=== PATIENT | male | born 1970 | race Caucasian/White ===

== ENCOUNTER 2018-04-19 09:00 | Inpatient (IN) | payer MEDICARE, MEDICAID ==
[~2018-04-19] VITALS: Ht 182.9 cm; Wt 148.9 kg
[2018-04-19] MEDS ORDERED: acetaminophen 325mg tablet PO PRN ×2 (11:30)
[2018-04-19] MEDS ORDERED: magnesium hydroxide 30ml (MOM) UD suspension PO PRN (11:30)
[2018-04-19] MEDS ORDERED: mag hydrox/Alum hydrox/simeth 30ml oral suspension PO PRN (11:30)
[2018-04-19 11:38] VITALS: BP 146/103
[2018-04-19] MEDS ORDERED: hydrOXYzine 25 MG tablet PO PRN (12:00)
[2018-04-19] MEDS ORDERED: TRAZ-219 PO (12:08)
[2018-04-19] MEDS ORDERED: METF-436 PO (12:08)
[2018-04-19] MEDS ORDERED: ARIP20TA4 PO (12:08)
[2018-04-19] MEDS ORDERED: TACR100O2 TOP (12:08)
[2018-04-19] MEDS ORDERED: ARIP400S3 IM (12:08)
[2018-04-19] MEDS ORDERED: INSU100V9 SQ (12:08)
[2018-04-19] MEDS ORDERED: DULA0.75 SQ (12:08)
[2018-04-19] MEDS ORDERED: PIOG45TA65 PO (12:08)
[2018-04-19] MEDS ORDERED: HYDR-3686 PO (12:08)
[2018-04-19 12:15] LABS: CHOL/HDL RATIO 6.5 (0.00-4.99); CHOLESTEROL 137 MG/DL (0-200); HDL CHOLESTEROL 21 MG/DL (35-60); LDL CHOLESTEROL 80 MG/DL (50-100); TRIGLYCERIDES 307 MG/DL (20-135)
[2018-04-19] MEDS ORDERED: DULAGLUTIDE SQ SCH (12:15)
[2018-04-19] MEDS: DULAGLUTIDE SQ SCH (19:00)
[2018-04-19 19:24] VITALS: BP 137/75
[2018-04-19] MEDS: metFORMIN 500mg tablet PO SCH (20:00)
[2018-04-19] MEDS: TACROLIMUS TP SCH (20:00)
[2018-04-19] MEDS: insulin glargine (Lantus) pen - multi-dose SQ SCH (21:46)
[2018-04-19] MEDS: traZODone 50mg tablet PO SCH (21:49)
[2018-04-20] MEDS: aripiprazole 5mg tablet PO SCH (07:53)
[2018-04-20] MEDS: pioglitazone 45mg tablet PO SCH (07:55)
[2018-04-20 08:00] VITALS: BP 129/91
[2018-04-20] MEDS: TACROLIMUS TP SCH ×2 (08:00→20:00)
[2018-04-20] MEDS: metFORMIN 500mg tablet PO SCH ×2 (08:32→21:04)
[2018-04-20] MEDS ORDERED: DULAGLUTIDE SQ ONE (09:10)
[2018-04-20] MEDS ORDERED: buPROPion SR 100mg tab PO ONE (11:05)
[2018-04-20 20:00] VITALS: BP 141/93
[2018-04-20] MEDS: traZODone 50mg tablet PO SCH (21:04)
[2018-04-20] MEDS: insulin glargine (Lantus) pen - multi-dose SQ SCH (21:09)
[2018-04-21 08:00] VITALS: BP 131/88
[2018-04-21] MEDS ORDERED: buPROPion 100mg tablet PO SCH (08:00)
[2018-04-21] MEDS ORDERED: buPROPion SR 100mg tab PO SCH (08:00)
[2018-04-21] MEDS: pioglitazone 45mg tablet PO SCH (08:09)
[2018-04-21] MEDS: aripiprazole 5mg tablet PO SCH (08:09)
[2018-04-21] MEDS: metFORMIN 500mg tablet PO SCH ×2 (08:09→20:10)
[2018-04-21] MEDS: TACROLIMUS TP SCH ×2 (08:11→20:00)
[2018-04-21 19:39] VITALS: BP 136/90
[2018-04-21] MEDS: traZODone 50mg tablet PO SCH (20:10)
[2018-04-21] MEDS: insulin glargine (Lantus) pen - multi-dose SQ SCH (20:13)
[2018-04-22] MEDS: pioglitazone 45mg tablet PO SCH (07:57)
[2018-04-22] MEDS: aripiprazole 5mg tablet PO SCH (07:57)
[2018-04-22] MEDS: buPROPion SR 150mg tablet PO SCH (07:58)
[2018-04-22] MEDS: metFORMIN 500mg tablet PO SCH ×2 (07:58→21:11)
[2018-04-22 08:00] VITALS: BP 129/80
[2018-04-22] MEDS ORDERED: duloxetine 30mg CAPSULE.DR PO SCH (08:00)
[2018-04-22] MEDS: TACROLIMUS TP SCH ×2 (08:03→20:00)
[2018-04-22 19:08] VITALS: BP 146/98
[2018-04-22 19:30] VITALS: BP 140/80
[2018-04-22] MEDS: insulin glargine (Lantus) pen - multi-dose SQ SCH (21:10)
[2018-04-22] MEDS: traZODone 50mg tablet PO SCH (21:11)
[2018-04-23] MEDS: pioglitazone 45mg tablet PO SCH (07:33)
[2018-04-23] MEDS: metFORMIN 500mg tablet PO SCH ×2 (07:34→20:52)
[2018-04-23] MEDS: duloxetine 30mg CAPSULE.DR PO SCH (07:34)
[2018-04-23] MEDS: buPROPion SR 150mg tablet PO SCH (07:35)
[2018-04-23] MEDS: aripiprazole 5mg tablet PO SCH (07:35)
[2018-04-23] MEDS: TACROLIMUS TP SCH ×2 (07:36→20:00)
[2018-04-23 08:00] VITALS: BP 126/82
[2018-04-23 18:57] VITALS: BP 131/84
[2018-04-23 20:00] VITALS: BP 131/84
[2018-04-23] MEDS: traZODone 50mg tablet PO SCH (20:52)
[2018-04-23] MEDS: insulin glargine (Lantus) pen - multi-dose SQ SCH (20:57)
[2018-04-24] MEDS: TACROLIMUS TP SCH ×2 (07:29→20:22)
[2018-04-24] MEDS: aripiprazole 5mg tablet PO SCH (07:30)
[2018-04-24] MEDS: buPROPion SR 150mg tablet PO SCH (07:30)
[2018-04-24] MEDS: pioglitazone 45mg tablet PO SCH (07:30)
[2018-04-24] MEDS: metFORMIN 500mg tablet PO SCH ×2 (07:30→20:22)
[2018-04-24] MEDS: duloxetine 30mg CAPSULE.DR PO SCH (07:31)
[2018-04-24 08:57] VITALS: BP 127/78
[2018-04-24 18:57] VITALS: BP 137/84
[2018-04-24 20:11] VITALS: BP 137/84
[2018-04-24] MEDS: insulin glargine (Lantus) pen - multi-dose SQ SCH (20:21)
[2018-04-24] MEDS: traZODone 50mg tablet PO SCH (20:22)
[2018-04-25 07:59] VITALS: BP 132/86
[2018-04-25] MEDS: pioglitazone 45mg tablet PO SCH (08:12)
[2018-04-25] MEDS: buPROPion SR 150mg tablet PO SCH (08:12)
[2018-04-25] MEDS: aripiprazole 5mg tablet PO SCH (08:12)
[2018-04-25] MEDS: metFORMIN 500mg tablet PO SCH ×2 (08:12→20:35)
[2018-04-25] MEDS: duloxetine 30mg CAPSULE.DR PO SCH (08:16)
[2018-04-25] MEDS: TACROLIMUS TP SCH ×2 (08:36→20:36)
[2018-04-25 19:00] VITALS: BP 124/76
[2018-04-25] MEDS: traZODone 50mg tablet PO SCH (20:35)
[2018-04-25] MEDS: insulin glargine (Lantus) pen - multi-dose SQ SCH (20:42)
[2018-04-26 08:00] VITALS: BP 117/86
[2018-04-26] MEDS: buPROPion SR 150mg tablet PO SCH (08:11)
[2018-04-26] MEDS: metFORMIN 500mg tablet PO SCH ×2 (08:11→21:00)
[2018-04-26] MEDS: pioglitazone 45mg tablet PO SCH (08:11)
[2018-04-26] MEDS: duloxetine 30mg CAPSULE.DR PO SCH (08:12)
[2018-04-26] MEDS: aripiprazole 5mg tablet PO SCH (08:12)
[2018-04-26] MEDS: TACROLIMUS TP SCH ×2 (08:12→20:00)
[2018-04-26] MEDS: DULAGLUTIDE SQ SCH (19:00)
[2018-04-26 19:55] VITALS: BP 123/81
[2018-04-26] MEDS: insulin glargine (Lantus) pen - multi-dose SQ SCH (20:58)
[2018-04-26] MEDS: traZODone 50mg tablet PO SCH (21:00)
[2018-04-27] MEDS: buPROPion SR 150mg tablet PO SCH (08:00)
[2018-04-27] MEDS: pioglitazone 45mg tablet PO SCH (08:00)
[2018-04-27] MEDS: duloxetine 30mg CAPSULE.DR PO SCH (08:01)
[2018-04-27] MEDS: DULAGLUTIDE SQ SCH (08:01)
[2018-04-27] MEDS: aripiprazole 5mg tablet PO SCH (08:01)
[2018-04-27] MEDS: metFORMIN 500mg tablet PO SCH ×2 (08:01→20:35)
[2018-04-27] MEDS: TACROLIMUS TP SCH ×2 (08:01→20:35)
[2018-04-27 08:06] VITALS: BP 120/79
[2018-04-27 19:38] VITALS: BP 115/74
[2018-04-27] MEDS: insulin glargine (Lantus) pen - multi-dose SQ SCH (20:34)
[2018-04-27] MEDS: traZODone 50mg tablet PO SCH (20:35)
[2018-04-28] MEDS: metFORMIN 500mg tablet PO SCH (07:59)
[2018-04-28 08:00] VITALS: BP 118/79
[2018-04-28] MEDS: buPROPion SR 150mg tablet PO SCH (08:00)
[2018-04-28] MEDS: TACROLIMUS TP SCH (08:00)
[2018-04-28] MEDS: pioglitazone 45mg tablet PO SCH (08:00)
[2018-04-28] MEDS: aripiprazole 5mg tablet PO SCH (08:00)
[2018-04-28] MEDS: duloxetine 30mg CAPSULE.DR PO SCH (08:00)
[2018-04-28] MEDS ORDERED: BUPR-84 PO (09:50)
[2018-04-28] MEDS ORDERED: ARIP2TAB11 PO (09:50)
[2018-04-28] MEDS ORDERED: DULO60CA64 PO (09:50)
[2018-05-16] MEDS ORDERED: aripiprazole 400mg suspension ER syringe IM SCH (08:00)
== END 2018-04-28 12:30 | disposition home or self-care (01) | DRG 885 ==
LOC: ED HOLD 09:00 → ADULT MH 11:23
PROVIDERS: ADMIT Psychiatry & Neurology Psychiatry; ATTEND Psychiatry & Neurology Psychiatry
DX: F33.2 Major depressive disorder, recurrent severe without psychotic features (principal); R45.851 Suicidal ideations; E11.9 Type 2 diabetes mellitus without complications; F41.9 Anxiety disorder, unspecified; Z88.0 Allergy status to penicillin; Z79.899 Other long term (current) drug therapy; Z81.8 Family history of other mental and behavioral disorders
CPT/HCPCS: 36415; 80061; 82948; 83036; J1815